=== PATIENT | male | born 1975 | race Caucasian/White ===

== ENCOUNTER → 2018-01-11 08:22 | Outpatient (CLI) | payer OTHER, SELFPAY ==
[2018-01-11 10:43] LABS: Estradiol 13.3 pg/mL
[2018-01-16 12:06] LABS: Testosterone, Free 7.79 ng/dL (5.00-21.00)
[2018-01-17 13:37] LABS: Testosterone, % Free 2.94 % (1.50-4.20); Testosterone, Total 265 ng/dL (264-916)
== END ==
DX: E29.1 Testicular hypofunction (principal)
CPT/HCPCS: 36415; 82670; 84402; 84403

== ENCOUNTER → 2018-02-28 09:47 | Outpatient (CLI) | payer BC, OTHER, SELFPAY ==
[2018-02-28 13:05] LABS: Estradiol 30.7 pg/mL; Prolactin 4.4 ng/mL
== END ==
DX: E29.1 Testicular hypofunction (principal)
CPT/HCPCS: 36415; 82670; 84146; 84403; 85014